=== PATIENT | male | born 1960 | race Caucasian/White ===

== ENCOUNTER 2017-08-27 17:29 | Emergency (ER) | payer SELFPAY ==
[2017-08-27 17:35] VITALS: BP 197/118; PULSE 97; RESP 14; TEMP 36.2; O2SAT 97
--- NOTE | 2017-08-27 17:38 | DI.CT.S_ITS ---
PROCEDURE: CT HEAD/BRAIN WO CON INDICATIONS: Head injury, mental status change TECHNIQUE: Noncontrast 4.5 mm thick angled axial sections acquired from the foramen magnum to the vertex, with coronal and sagittal reformats. For radiation dose reduction, the following was used: automated exposure control, adjustment of mA and/or kV according to patient size. COMPARISON: None. FINDINGS: Image quality: Motion artifact limits evaluation. CSF spaces: Basal cisterns are patent. No extra-axial fluid collections. Ventricles are normal in size and shape. Brain: No midline shift. No intracranial masses or hemorrhage. Tomas-white matter interface is normal. Skull and face: Patient is status post right frontal craniotomy. Calvarium and visualized facial bones are intact, without suspicious lesions. Sinuses: Visualized sinuses and mastoids are clear. IMPRESSION: Somewhat limited evaluation due to to motion artifact. No acute intracranial findings. Postsurgical change. Dictated by: Oksana Miguel M.D. on 08/27/2017 at 18:15 Approved by: Oksana Miguel M.D. on 08/27/2017 at 18:16
--- NOTE | 2017-08-27 17:52 | PC.NURSE ---
Pt went to CT. Upon return, a/o x 3. SOLIMAN equally well. Stated he wanted to leave AMA and did not want IV, blood work or any other tests. MD review CT.
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
== END 2017-08-27 18:06 | disposition left against medical advice (07) ==
PROVIDERS: Emergency Provider Emergency Medicine
DX: I10 Essential (primary) hypertension (principal)
CPT/HCPCS: 70450; 93005; 99282

== ENCOUNTER 2019-04-11 07:57 | Emergency (ER) | payer OTHER, MEDICAID, SELFPAY ==
[2019-04-11 07:58] VITALS: BP 189/99; PULSE 54; RESP 20; TEMP 36.6; O2SAT 100
--- NOTE | 2019-04-11 08:12 | ED.DENTAL ---
HPI - Dental/Oral General Chief complaint: Dental/Oral Stated complaint: face is starting to swell from bad tooth Time Seen by Provider: 04/11/19 08:01 Source: patient Mode of arrival: Ambulatory Limitations: no limitations History of Present Illness HPI Narrative: Patient is a 58-year-old male who presents with dental pain and facial swelling. He has poor dental pain he has already had 1 abscess in his to drained however over the last 3 days there's a different top to that now he feels is painful and feels like his face is swollen. He has not yet been on any antibiotics he denies any fever Teeth map: 1. Pain no dental abscess Onset (ago): day(s) (3) Relieving factors: nothing Exacerbating factors: nothing Related Data Previous Rx's Medication Instructions Recorded amoxicillin 500 mg PO BID #14 cap 04/11/19 Allergies Allergy/AdvReac Type Severity Reaction Status Date / Time acetaminophen [ACETAMINOPHEN] Allergy Unknown Verified 04/11/19 08:12 hydroxyzine [HYDROXYZINE] Allergy Unknown Verified 04/11/19 08:12 Iodine and Iodide Containing Allergy Unknown Verified 04/11/19 08:12 Produc [IODINE AND IODIDE CONTAINING PRODUC] lamotrigine [From LAMICTAL] Allergy Unknown Verified 04/11/19 08:12 latex [LATEX] Allergy Unknown Verified 04/11/19 08:12 morphine [MORPHINE] Allergy Unknown Verified 04/11/19 08:12 shellfish derived Allergy Unknown Verified 04/11/19 08:12 [SHELLFISH DERIVED] Sulfa (Sulfonamide Allergy Unknown Verified 04/11/19 08:12 Antibiotics) [SULFA (SULFONAMIDE ANTIBIOTICS)] Review of Systems Review of Systems Narrative: GENERAL: Denies chills,fever HEENT: See HPI RESPIRATORY: Denies dyspnea, cough, wheezing CARDIOVASCULAR: Denies chest pain, palpitations GASTROINTESTINAL: Denies nausea, vomiting MUSCULOSKELETAL: Denies extremity pain, injury SKIN: No rash, no laceration, no pruritus NEUROLOGIC: Denies weakness, dizziness, headache, numbness 8 point review of systems is negative except for those stated above and HPI Patient History Medical History Poor dentition (Acute) Social History Smoking Status: Current every day smoker Smoking Status: Current every day smoker alcohol intake frequency: 0-2 drinks per day Substance Use Type: does not use Exam Initial Vital Signs Initial Vital Signs: Vital Signs Temperature 97.9 F 04/11/19 07:58 Pulse Rate 54 L 04/11/19 07:58 Respiratory Rate 20 04/11/19 07:58 Blood Pressure 189/99 H 04/11/19 07:58 Pulse Oximetry 100 04/11/19 07:58 GENERAL: Well-appearing, well-nourished and in no acute distress. HEENT: Poor dentition upper teeth show no dental abscess CARDIOVASCULAR: peripheral pulses in tact, cap refill <2 sec RESPIRATORY: No respiratory distress, speaks in full sentences without difficulty EXTREMITIES: Normal range of motion, no clubbing or edema. Neurovascularly intact NEUROLOGICAL: Cranial nerves II through XII grossly intact. Normal gait and speech. SKIN: Warm, dry, no petechiae, no rashes or lesions. Course Vital Signs Vital signs: Vital Signs - 8 hr 04/11/19 07:58 Temperature 97.9 F Pulse Rate 54 L Respiratory Rate 20 Blood Pressure 189/99 H Pulse Oximetry 100 Discharge Plan Departure Patient Disposition: Home Clinical Impression: Pain, dental Discharge Date/Time: 04/11/19 08:30 Instructions: Tooth Decay Activity Restrictions/Additional Instructions: *You have been diagnosed with dental pain *What to do: You do need to follow-up with a dentist you may need further treatment *Continue to take medications as directed Amoxicillin 500 mg twice a day sent to [facility] in [place] *Follow up with your primary care provider in 2-3 days *Return to ER if you should have increasing facial swelling or pain or any new, worsening or concerning symptoms Prescriptions: New amoxicillin 500 mg capsule 500 mg PO BID Qty: 14 RF: 0
== END 2019-04-11 08:30 | disposition home or self-care (01) ==
LOC: ED 08:34
PROVIDERS: Emergency Provider Emergency Medicine
DX: K08.89 Other specified disorders of teeth and supporting structures (principal)
CPT/HCPCS: 99281

== ENCOUNTER 2022-08-08 13:55 | Emergency (ER) | payer OTHER, MEDICAID, SELFPAY ==
[2022-08-08 14:13] VITALS: BP 138/101; PULSE 47; RESP 18; TEMP 37; O2SAT 97
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
--- NOTE | 2022-08-08 14:50 | DI.RAD.S_ITS ---
PROCEDURE: XR FACIAL BONES MIN 3V INDICATIONS: R sided facial TTP; trauma TECHNIQUE: 3 views of the facial bones were acquired. COMPARISON: [facility], CR, XR SKULL 4+ VIEWS, 01/22/2018, 10:36. FINDINGS: Sinuses: Visualized sinuses demonstrate no obvious air-fluid levels. Bones: Possible acute minimally displaced fracture of the anterior mandible on the lateral view. Orbital rims appear intact. Postsurgical changes of the right frontal bone. IMPRESSION: Possible acute minimally displaced anterior mandible fracture. Correlation with point tenderness may be helpful, CT could be obtained if clinically indicated. Dictated by: Fred Palacios M.D. on 08/08/2022 at 16:42 Approved by: Fred Palacios M.D. on 08/08/2022 at 16:46
[2022-08-08 16:16] VITALS: BP 219/107; PULSE 66; O2SAT 100
--- NOTE | 2022-08-08 16:18 | PC.NURSE ---
PRINT LINE INSPECTOR NOTE: took pt vitals pt blood pressure was 210/107 when attempted to take again pt refused because he was in too much pain RN notified
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
--- NOTE | 2022-08-08 17:07 | PC.NURSE ---
pt refusing vitals. standing in [place] asking to go home bc he has dogs.
== END 2022-08-08 17:08 | disposition left against medical advice (07) ==
PROVIDERS: Emergency Provider Student in an Organized Health Care Education/Training Program
DX: R51.9 Headache, unspecified (principal)
CPT/HCPCS: 70150; 99283; 99284

== ENCOUNTER 2023-08-15 21:51 | Emergency (ER) | payer OTHER, MEDICAID, SELFPAY ==
[2023-08-15 21:56] VITALS: BP 178/89; PULSE 71; RESP 16; TEMP 36.6; O2SAT 98; BMI 19.9
--- NOTE | 2023-08-15 22:07 | DI.RAD.S_ITS ---
PROCEDURE: XR FINGER LT MIN 2V INDICATIONS: cut finger TECHNIQUE: AP hand, 2 views of the 2nd finger(s) acquired. COMPARISON: None. FINDINGS: Bones: No fractures or dislocations. No suspicious bony lesions. Scattered IP minimal degenerative narrowing. Soft tissues: No suspicious soft tissue calcifications. Laceration is present within the soft tissues of the 2nd digit. No radiopaque foreign body. IMPRESSION: 2nd digit soft tissue laceration without underlying abnormal osseous abnormality. Dictated by: Ignacia Carson M.D. on 08/15/2023 at 23:18 Approved by: Ignacia Carson M.D. on 08/15/2023 at 23:19
--- NOTE | 2023-08-15 23:01 | ED.WOUNDLAC ---
HPI - Wound/Laceration General Chief Complaint: Wound/Laceration Stated Complaint: chainsaw cut lt index finger Time Seen by Provider: 08/15/23 22:53 Source: patient Mode of arrival: Ambulatory History of Present Illness HPI narrative: 63-year-old male who is here for evaluation of a cut to the back of his left index finger. He stated that he cut it on the blade of his chainsaw. No other injuries from the event. He did try to clean it prior to arrival but it was bleeding quite a bit so he focused on putting pressure over the area. He states he does not need a tetanus shot. Related Data Previous Rx's Medication Instructions Recorded amoxicillin 500 mg capsule 500 mg PO BID #14 caps 04/11/19 Allergies Allergy/AdvReac Type Severity Reaction Status Date / Time acetaminophen [ACETAMINOPHEN] Allergy Unknown Verified 08/08/22 16:52 hydroxyzine [HYDROXYZINE] Allergy Unknown Verified 08/08/22 16:52 Iodine and Iodide Containing Allergy Unknown Verified 08/08/22 16:52 Produc [IODINE AND IODIDE CONTAINING PRODUC] lamotrigine [From LAMICTAL] Allergy Unknown Verified 08/08/22 16:52 latex [LATEX] Allergy Unknown Verified 08/08/22 16:52 morphine [MORPHINE] Allergy Unknown Verified 08/08/22 16:52 shellfish derived Allergy Unknown Verified 08/08/22 16:52 [SHELLFISH DERIVED] Sulfa (Sulfonamide Allergy Unknown Verified 08/08/22 16:52 Antibiotics) [SULFA (SULFONAMIDE ANTIBIOTICS)] Review of Systems Musculoskeletal Musculoskeletal: Reports system reviewed and no additional complaints, except as documented Integumentary/Breasts Skin/Breast: Reports system reviewed and no additional complaints, except as documented Neurologic Neurologic: Reports system reviewed and no additional complaints, except as documented Patient History Medical History Poor dentition Social History Smoking Status: Current every day smoker Smoking Status: Current every day smoker tobacco type: cigarettes alcohol intake frequency: holidays/special occasions only Substance Use Type: does not use Exam Initial Vital Signs Initial Vital Signs: Vital Signs Temperature 98 F 08/15/23 21:56 Pulse Rate 71 08/15/23 21:56 Respiratory Rate 16 08/15/23 21:56 Blood Pressure 178/89 H 08/15/23 21:56 Pulse Oximetry 98 08/15/23 21:56 Oxygen Delivery Method Room Air 08/15/23 21:56 Skin Other: 2 cm laceration to the dorsum of the left index finger in between his DIPJ and PIP joint. Neuro Sensory Exam: no sensory deficits noted Extrem Other: Patient is able to flex and extend both active and passive at the MCP PIP and PIP joint. Procedures Laceration Repair Laceration 1: Site: hand Side (If applicable): left Size (cm): 2 Description: linear Depth: simple, single layer Local Anesthetic: lidocaine 1% Amount of anesthesia used (mL): 3 Pre-repair: wound explored, irrigated extensively and deep structures intact Skin layer closed with: nylon Skin layer suture size: 5-0 Number of sutures: 5 Technique: simple, interrupted Course Orders Ordered: ED Orders 08/15/23 22:07 XR finger LT min 2V Stat Discontinued Medications Bacitracin (Bacitracin Oint 0.9 Gm Pckt) 1 applic TOP NOW ONE Stop: 08/15/23 23:28 Last Admin: 08/15/23 23:45 Dose: 1 applic Documented By: HNG Vital Signs Vital signs: Vital Signs - 8 hr 08/15/23 21:56 Temperature 98 F Pulse Rate 71 Respiratory Rate 16 Blood Pressure 178/89 H Pulse Oximetry 98 Oxygen Delivery Method Room Air MDM - Wound/Laceration Imaging Data Extremity x-ray #1: Radiologist's Impression: PROCEDURE: XR FINGER LT MIN 2V INDICATIONS: cut finger TECHNIQUE: AP hand, 2 views of the 2nd finger(s) acquired. COMPARISON: None. FINDINGS: Bones: No fractures or dislocations. No suspicious bony lesions. Scattered IP minimal degenerative narrowing. Soft tissues: No suspicious soft tissue calcifications. Laceration is present within the soft tissues of the 2nd digit. No radiopaque foreign body. IMPRESSION: 2nd digit soft tissue laceration without underlying abnormal osseous abnormality. MDM Narrative Medical decision making narrative: No fractures on the x-ray. Wound was cleaned. Tendons appear to be intact. Skin was closed as described above. No foreign body was noted. Patient was given care instructions and return precautions. He expressed understanding and agreement. Discharge Plan Departure Patient Disposition: Home Clinical Impression: Laceration Instructions: DI for Minor Laceration Activity Restrictions/Additional Instructions: The stitches do need to be removed in 7-10 days. Until then keep the area clean. You can use soap and water. You can use a topical antibiotic ointment. Return to the emergency department for new or worsening symptoms Prescriptions: No Action amoxicillin 500 mg capsule 500 mg PO BID Qty: 14 0RF Referrals: Miscellaneous,Doctor, MD [Primary Care Provider] - Stand Alone Forms: Patient Portal/API
--- NOTE | 2023-08-15 23:22 | PC.NURSE ---
pt declines tetanus.
[2023-08-15] MEDS: BACITRACIN OINT 0.9 GM PCKT 1 APPLIC TOP (23:45)
== END 2023-08-15 23:52 | disposition home or self-care (01) ==
PROVIDERS: Emergency Provider Emergency Medicine
DX: S61.211A Laceration without foreign body of left index finger without damage to nail, initial encounter (principal); W29.3XXA Contact with powered garden and outdoor hand tools and machinery, initial encounter
CPT/HCPCS: 12001; 73140; 99283

== ENCOUNTER 2023-10-25 10:29 | Emergency (ER) | payer OTHER, MEDICAID, SELFPAY ==
[2023-10-25] VITALS (7 sets, daily range): BP systolic 165–220; BP diastolic 98–122; PULSE 68–88; RESP 18; TEMP 36.9; O2SAT 94–99
--- NOTE | 2023-10-25 10:42 | DI.RAD.S_ITS ---
PROCEDURE: XR WRIST RT MIN 3V INDICATIONS: fall onto right arm TECHNIQUE: 4 views of the wrist were acquired. COMPARISON: None. FINDINGS: Bones: No fractures or dislocations. No suspicious bony lesions. Soft tissues: No suspicious soft tissue calcifications. IMPRESSION: No acute right wrist fracture or dislocation. Dictated by: Agus Meraz M.D. on 10/25/2023 at 11:29 Approved by: Agus Meraz M.D. on 10/25/2023 at 11:29
--- NOTE | 2023-10-25 10:42 | DI.RAD.S_ITS ---
PROCEDURE: XR HUMERUS RT 2V INDICATIONS: fall onto right arm TECHNIQUE: 3 views of the humerus were acquired. COMPARISON: None. FINDINGS: Bones: No fractures or dislocations. No suspicious bony lesions. Soft tissues: No suspicious soft tissue calcifications. IMPRESSION: No acute humeral fracture or dislocation. Moderate acromioclavicular joint osteoarthritis. Dictated by: Agus Meraz M.D. on 10/25/2023 at 11:28 Approved by: Agus Meraz M.D. on 10/25/2023 at 11:28
--- NOTE | 2023-10-25 11:10 | ED_ITS ---
HPI - Extremity Injury (Upper) General Chief Complaint: Extremity Injury, Upper Stated Complaint: Fell on right arm Time Seen by Provider: 10/25/23 10:42 Source: patient Mode of arrival: Ambulatory History of Present Illness HPI narrative: 63-YEAR-OLD male presents for evaluation of right wrist pain. Patient states that at approximately 4:00 a.m. he was taking the dog out when he lost his balance and landed on his right forearm and wrist. He denies hitting his head, denies loss of consciousness, denies any other injuries. Patient states that he feels a numb/stinging pain on the outside of his hand. Reports difficulty in extending his wrist, denies difficulty flexing his wrist Patient reported to triage that he had had thoughts of taking a gun to a crowded safely, but states that he was no active intentions of harming anyone and these are passing thoughts that he has from time to time. He denies any intent to harm himself or anyone else at this time. Related Data Previous Rx's Medication Instructions Recorded amoxicillin 500 mg capsule 500 mg PO BID #14 caps 04/11/19 Allergies Allergy/AdvReac Type Severity Reaction Status Date / Time acetaminophen [ACETAMINOPHEN] Allergy Unknown Verified 08/08/22 16:52 hydroxyzine [HYDROXYZINE] Allergy Unknown Verified 08/08/22 16:52 Iodine and Iodide Containing Allergy Unknown Verified 08/08/22 16:52 Produc [IODINE AND IODIDE CONTAINING PRODUC] lamotrigine [From LAMICTAL] Allergy Unknown Verified 08/08/22 16:52 latex [LATEX] Allergy Unknown Verified 08/08/22 16:52 morphine [MORPHINE] Allergy Unknown Verified 08/08/22 16:52 shellfish derived Allergy Unknown Verified 08/08/22 16:52 [SHELLFISH DERIVED] Sulfa (Sulfonamide Allergy Unknown Verified 08/08/22 16:52 Antibiotics) [SULFA (SULFONAMIDE ANTIBIOTICS)] Review of Systems Review of Systems Narrative: See HPI Patient History Medical History Poor dentition Social History Smoking Status: Current every day smoker Smoking Status: Current every day smoker tobacco type: cigarettes alcohol intake frequency: holidays/special occasions only Substance Use Type: does not use Exam Initial Vital Signs Initial Vital Signs: Vital Signs Pulse Oximetry 94 10/25/23 10:33 Const: Awake, alert, no acute distress, appears older than stated age MSK: Atraumatic, 2+ radial pulses bilaterally, city weighmaster strength equal bilaterally, able to wiggle fingers, no snuffbox tenderness Skin: Warm, Dry, intact, no rashes, capillary refill 3 seconds in fingers of right hand left-hand Neuro: AO x3, CN II-XII grossly intact, moves all extremities Course Orders Ordered: ED Orders 10/25/23 10:42 XR humerus RT 2V Stat XR wrist RT min 3V Stat Vital Signs Vital signs: Vital Signs - 8 hr 10/25/23 10:33 10/25/23 10:38 10/25/23 10:38 Temperature Pulse Rate 70 Pulse Rate [Right Radial] Respiratory Rate Blood Pressure 220/122 H Pulse Oximetry 94 99 Oxygen Delivery Method 10/25/23 10:40 10/25/23 10:57 Temperature 98.4 F Pulse Rate 84 Pulse Rate [Right Radial] 88 Respiratory Rate 18 Blood Pressure 220/122 H Pulse Oximetry 98 Oxygen Delivery Method Room Air MDM - Extremity Injury (Upper) Differential Diagnosis Differential diagnosis: Likely sprain and strain of wrist, fracture of wrist and finger sprain Imaging Data Extremity x-ray #1: Radiologist's Impression: PROCEDURE: XR WRIST RT MIN 3V INDICATIONS: fall onto right arm TECHNIQUE: 4 views of the wrist were acquired. COMPARISON: None. FINDINGS: Bones: No fractures or dislocations. No suspicious bony lesions. Soft tissues: No suspicious soft tissue calcifications. IMPRESSION: No acute right wrist fracture or dislocation. Dictated by: Agus Meraz M.D. on 10/25/2023 at 11:29 Approved by: Agus Meraz M.D. on 10/25/2023 at 11:29 Extremity x-ray #2: Radiologist's Impression: PROCEDURE: XR HUMERUS RT 2V INDICATIONS: fall onto right arm TECHNIQUE: 3 views of the humerus were acquired. COMPARISON: None. FINDINGS: Bones: No fractures or dislocations. No suspicious bony lesions. Soft tissues: No suspicious soft tissue calcifications. IMPRESSION: No acute humeral fracture or dislocation. Moderate acromioclavicular joint osteoarthritis. Dictated by: Agus Meraz M.D. on 10/25/2023 at 11:28 Approved by: Agus Meraz M.D. on 10/25/2023 at 11:28 MDM Narrative Medical decision making narrative: Wrist injury earlier this morning. Neurovascularly intact, reports some difficulty in extension of wrist, however he was able to wiggle all his fingers, has no deformity, equal city weighmaster strength, sensation equal bilaterally. X-ray imaging negative for acute findings. Placed in wrist splint for support. Counseled primary and orthopedic follow up if needed. Discharge Plan Departure Patient Disposition: Home Clinical Impression: Sprain and strain of wrist Instructions: DI for Wrist Sprain Activity Restrictions/Additional Instructions: Your X ray imaging today is normal. I recomend wearing the splint for comfort and stability. You may follow up with the primary care doctor or orthopedic surgery if you continued to have difficulties with your wrist. Prescriptions: No Action amoxicillin 500 mg capsule 500 mg PO BID Qty: 14 0RF Referrals: Miscellaneous,MD Daniela [Primary Care Provider] - Noah Guzman MD [Physician] - Stand Alone Forms: Patient Portal/API
== END 2023-10-25 11:47 | disposition home or self-care (01) ==
PROVIDERS: Emergency Provider Emergency Medicine
DX: S63.501A Unspecified sprain of right wrist, initial encounter (principal); W01.0XXA Fall on same level from slipping, tripping and stumbling without subsequent striking against object, initial encounter; Y93.K1 Activity, walking an animal
CPT/HCPCS: 29125; 73060; 73110; 99281; 99283

== ENCOUNTER 2025-03-22 12:20 | Emergency (ER) | payer OTHER, SELFPAY ==
[2025-03-22 12:36] VITALS: BP 159/91; PULSE 77; RESP 18; TEMP 36.6; O2SAT 98
[2025-03-22] MEDS: FLUTICASONE 120 SPRAY/16 GM SPRAY.SUSP NASAL (13:53)
[2025-03-22] MEDS: PSEUDOEPHEDRINE 30 MG TABLET PO (13:54)
[2025-03-22] MEDS: LORATADINE 10 MG TABLET PO (13:54)
[2025-03-22] MEDS: METHADONE INTENSOL 10 MG/ML ORAL.CONC 155 MG PO (13:54)
[2025-03-22 14:00] VITALS: BP 156/94; PULSE 73; RESP 16; O2SAT 100
--- NOTE | 2025-03-22 14:17 | ED.EAR ---
HPI - Ear Problem General Chief complaint: Ear Stated complaint: Woke up and can't hear - needs methodone Time Seen by Provider: 03/22/25 13:00 Source: patient Mode of arrival: Ambulatory History of Present Illness HPI Narrative: 64-year-old male here today for 2 concerns. First, he woke up today with pressure and discomfort in bilateral ears and dizziness which occurs when he turns his head quickly. He was especially affected by this while repositioning in bed and while he was driving here. States that he felt unwell and woke up late and therefore missed his opportunity to be seen at his methadone clinic today. He receives 155 mg methadone solution which was verified by [facility] clinic. He needs his dose here in the ED, and will also need his dose tomorrow in the ED since they are closed tomorrow and normally on Saturdays they give him his Monday dose to take home with him. Patient states that he had some stroke-like symptoms several months ago and since then his ears have been bothering him. He has had a persistent pressure-like feeling in his ears as though he can not clear them, but the dizziness just started today. States when at rest he does not have any symptoms of dizziness but it is only when he turns his head quickly. States he has had benign positional vertigo in the past a couple of times and this feels similar. He denies any new numbness or tingling in his extremities, severe headache, vision changes, neck pain, difficulty walking or talking or any other new symptoms. He denies other URI symptoms such as sore throat, nasal congestion, cough, ear pain, etc. Related Data Home Medications ?Medication ?Instructions ?Recorded ?Confirmed methadone 10 mg/mL oral syringe 155 mg PO DAILY 03/22/25 03/22/25 (FOR ORAL USE ONLY) Previous Rx's ?Medication ?Instructions ?Recorded amoxicillin 500 mg capsule 500 mg PO BID #14 caps 04/11/19 fluticasone propionate 50 1 spray intranasal BID #16 grams 03/22/25 mcg/actuation nasal spray,suspension (Flonase Allergy Relief) loratadine 5 mg-pseudoephedrine ER 1 tab PO Q12H #14 tabs 03/22/25 120 mg tablet,extended release,12hr (Claritin-D 12 Hour) Allergies Allergy/AdvReac Type Severity Reaction Status Date / Time acetaminophen (ACETAMINOPHEN) Allergy Unknown Verified 12/06/24 10:44 hydroxyzine (HYDROXYZINE) Allergy Unknown Verified 12/06/24 10:44 Iodine and Iodide Containing Allergy Unknown Verified 12/06/24 10:44 Produc (IODINE AND IODIDE CONTAINING PRODUC) lamotrigine (From LAMICTAL) Allergy Unknown Verified 12/06/24 10:44 latex (LATEX) Allergy Unknown Verified 12/06/24 10:44 morphine (MORPHINE) Allergy Unknown Verified 12/06/24 10:44 shellfish derived (SHELLFISH Allergy Unknown Verified 12/06/24 10:44 DERIVED) Sulfa (Sulfonamide Allergy Unknown Verified 12/06/24 10:44 Antibiotics) (SULFA (SULFONAMIDE ANTIBIOTICS)) Review of Systems Review of Systems ROS Unobtainable: All systems reviewed & are unremarkable except as noted in HPI and below Patient History Medical History (Updated 03/22/25 @ 14:19 by Dalila Leon PA-C) Poor dentition Smoking Status: Current some day smoker tobacco type: cigarettes alcohol intake frequency: holidays/special occasions only Exam Narrative Exam Narrative: GENERAL: [64] year old patient appears stated age. Well-developed patient, in no acute distress. HEAD: Atraumatic. Normocephalic. EYES: Pupils equal round and reactive. Extraocular motions intact. No scleral icterus. No injection or drainage. ENT: Nose without bleeding, purulent drainage. Throat without erythema, tonsillar hypertrophy or exudate. Airway patent. TMs and ear canals unremarkable. NECK: Trachea midline. Non tender CARDIOVASCULAR: Regular rate and rhythm without murmurs, gallops, or rubs. RESPIRATORY: Clear to auscultation. Breath sounds equal bilaterally. No wheezes, rales, or rhonchi. GASTROINTESTINAL: Abdomen soft, non-tender, nondistended. EXTREMITIES: No edema or joint tenderness. BACK: Nontender without deformity or crepitus. No flank tenderness. NEURO: AOx3. Normal gait. No slurred speech or facial nerve palsy. Full strength and sensation in all extremities. No focal neurologic deficits. SKIN: No rash or erythema of visible areas Initial Vital Signs Initial Vital Signs: Vital Signs Temperature 98 F 03/22/25 12:36 Pulse Rate 77 03/22/25 12:36 Respiratory Rate 18 03/22/25 12:36 Blood Pressure 159/91 H 03/22/25 12:36 Pulse Oximetry 98 03/22/25 12:36 Oxygen Delivery Method Room Air 03/22/25 12:36 Course Orders Ordered: ED Orders 03/22/25 12:42 Consult to [employer] - [employer] Supervisor Stat Discontinued Medications Fluticasone Propionate (Fluticasone 120 [place]/16 Gm Olancha.Susp) 1 spray NASAL NOW ONE Stop: 03/22/25 13:29 Last Admin: 03/22/25 13:53 Dose: 1 spray Documented By: JOSE J Loratadine (Loratadine 10 Mg Tablet) 10 mg PO NOW ONE Stop: 03/22/25 13:29 Last Admin: 03/22/25 13:54 Dose: 10 mg Documented By: JOSE J Methadone HCl (Methadone Intensol 10 Mg/Ml Oral.Conc) 155 mg PO NOW ONE Stop: 03/22/25 13:29 Last Admin: 03/22/25 13:54 Dose: 155 mg Documented By: JOSE J Pseudoephedrine HCl (Pseudoephedrine 30 Mg Tablet) 30 mg PO NOW ONE Stop: 03/22/25 13:29 Last Admin: 03/22/25 13:54 Dose: 30 mg Documented By: JOSE J Vital Signs Vital signs: Vital Signs - 8 hr 03/22/25 12:36 03/22/25 14:00 Temperature 98 F Pulse Rate 77 73 Respiratory Rate 18 16 Blood Pressure 159/91 H 156/94 H Pulse Oximetry 98 100 Oxygen Delivery Method Room Air Room Air Medical Decision Making [facility] Narrative Medical decision making narrative: Multiple etiologies for patient's symptoms considered including, but not limited to: Eustachian tube dysfunction, BPPV, central vertigo, methadone use Patient has a normal neurologic exam today and no new symptoms that would indicate a central cause of vertigo. His symptoms are consistent of BPPV and Eustachian tube dysfunction. He is homeless and lives in his car and is unsure if his insurance status and his ability to afford anything OTC. [employer] consult was placed and he was given information about his insurance coverage and other resources. We did give him Claritin D and Flonase here in the ED, and I sent these as a prescription in case he can get these covered. Recommend he continue these until his ear pressure has resolved. He was given his methadone dose here in the ED and he will need to return tomorrow to have his Monday dose as his methadone clinic is closed tomorrow. He also reports his blood pressure being elevated because he is out of 2 of his 3 blood pressure meds (amlodipine 2.5 mg and olmesartan 40 mg) he will be unable to obtain these until Monday so he was given a dose of each here in the ED (losartan 100 mg was substituted for olmesartan 40 mg, discussed this with inpatient pharmacy). He will also receive a dose of each when he comes in tomorrow for his methadone. For his vertigo, patient was given a handout for the Samira maneuver and encouraged to complete this 3 times daily until his symptoms resolve. Return if symptoms are worsening or if he has new symptoms such as headaches, vision changes, numbness or tingling, difficulty ambulating, slurred speech, etc.. Patient's symptoms improved over duration of stay with above-stated therapies. Findings and discharge diagnosis discussed with patient/family followed by verbalization of understanding Return precautions discussed with patient/family whom verbalize understanding of diagnosis and plan Discharge Plan Departure Patient Disposition: Home Clinical Impression: Benign paroxysmal positional vertigo, bilateral, Methadone use Instructions: DI for Benign Paroxysmal Positional Vertigo, How to Perform Samira Maneuver Activity Restrictions/Additional Instructions: Thank you for choosing us to care for you today. Your ear discomfort and dizziness is likely from something called benign positional vertigo. The treatment for this is called the Samira maneuver. There is an attached description of this maneuver which he will perform at home 3 times daily until your symptoms have resolved. Please also pick remover Claritin D and Flonase from the pharmacy and take these for your ear pressure. You were given your methadone dose here in the ED today. Your methadone clinic is closed tomorrow so you will need to return to this emergency department to get your dose tomorrow. You were also given a dose of your blood pressure medications amlodipine 2.5 mg and olmesartan 40 mg. Since you have run out of these you will receive another dose of each of those when you return tomorrow for your methadone dose. Please take your other blood pressure medication when you get home. If you have significantly worsening dizziness or new or worsening symptoms such as headache, vision changes, difficulty walking or talking, etc. please return to this emergency department immediately. Prescriptions: New Claritin-D 12 Hour 5-120 mg tablet extended release 12 hr 1 tab PO Q12H Qty: 14 0RF fluticasone propionate [Flonase Allergy Relief] 50 mcg/actuation spray,suspension 1 spray intranasal BID Qty: 16 0RF Rx Instructions: administer into each nostril No Action amoxicillin 500 mg capsule 500 mg PO BID Qty: 14 0RF methadone 10 mg/mL syringe 155 mg PO DAILY Patient Comments: Confirmed with [facility] clinic 03/22/25 Stand Alone Forms: Patient Portal/API
[2025-03-22 14:36] VITALS: BP 156/94
[2025-03-22] MEDS: LOSARTAN 50 MG TABLET 100 MG PO (14:36)
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
== END 2025-03-22 14:40 | disposition home or self-care (01) ==
PROVIDERS: Emergency Provider Physician Assistant
DX: H81.13 Benign paroxysmal vertigo, bilateral (principal); F11.90 Opioid use, unspecified, uncomplicated; Z59.02 Unsheltered homelessness
CPT/HCPCS: 99283